=== PATIENT | female | born 1940 | race Caucasian/White ===

== ENCOUNTER 2024-10-14 14:26 | Inpatient (IN) | payer MEDICARE, OTHER ==
[~2024-10-14] VITALS: Ht 157.5 cm; Wt 37.6 kg
[2024-10-14 15:18] LABS: BASOPHILS % (AUTO) 0.7 % (0.0-2.0); EOSINOPHILS # (AUTO) 0.2 K/uL (0.0-0.7); EOSINOPHILS % (AUTO) 2.7 % (0.0-6.0); HEMATOCRIT 32 % (33-45); HEMOGLOBIN 11.1 g/dL (11.5-14.8); MEAN CORPUSCULAR HEMOGLOBIN 32 PG (26.0-33.0); MEAN CORPUSCULAR HGB CONC 34 g/dl (31.0-36.0); MEAN CORPUSCULAR VOLUME 94 fL (82-100); MONOCYTES # (AUTO) 0.5 K/uL (0.1-1.30); MONOCYTES % (AUTO) 8.8 % (2.0-12.0); NEUTROPHILS # (AUTO) 2.8 K/uL (1.8-8.9); NEUTROPHILS % (AUTO) 50.8 % (43.0-81.0); PLATELET COUNT (AUTO) 325 K/uL (150-450); RED BLOOD CELL COUNT(AUTO) 3.43 MIL/uL (4.0-5.2); RED CELL DISTRIBUTION WIDTH 13.4 % (11.5-15.0); WHITE BLOOD COUNT (AUTO) 5.5 K/uL (4.3-11.0)
[2024-10-14] MEDS: IV NS 0.9% 500 ML BAG IV ONE (15:23)
[2024-10-14 15:28] LABS: CALCIUM, SERUM 9.6 mg/dL (8.5-10.1); CREATININE 0.8 mg/dL (0.6-1.3); POTASSIUM 4.2 mmol/L (3.5-5.1)
[2024-10-14] MEDS ORDERED: AMLO5TAB4 PO (15:58)
[2024-10-14] MEDS ORDERED: VALP250C3 PO (15:58)
[2024-10-14] MEDS ORDERED: MULT-213 PO (15:58)
[2024-10-14] MEDS ORDERED: SIMV10TA98 PO (15:58)
[2024-10-14] MEDS ORDERED: FAMO-131 PO (15:58)
[2024-10-14] MEDS ORDERED: OLAN10TA3 PO (15:58)
[2024-10-14] MEDS ORDERED: MELA3TAB41 PO (15:58)
[2024-10-14] MEDS ORDERED: ACET-2030 PO (15:58)
[2024-10-14 16:00] VITALS: BP 136/85; TEMP 97.9; O2SAT 98
[2024-10-14 16:11] LABS: APPEARANCE,URINE CLEAR (CLEAR); BILIRUBIN,URINE NEGATIVE (NEGATIVE); BLOOD, URINE NEGATIVE Ery/uL (NEGATIVE); COLOR,URINE YELLOW (YELLOW); KETONES,URINE NEGATIVE (NEGATIVE); LEUKOCYTE ESTERASE ,URINE 1+ (NEGATIVE); NITRITE, URINE NEGATIVE (NEGATIVE); PROTEIN,URINE NEGATIVE (NEGATIVE); UGLUCOSE NEGATIVE (NEGATIVE); UROBILINOGEN,URINE 0.2 EU/dL (0.2)
[2024-10-14 16:18] LABS: ADD URINE CULTURE YES; BACTERIA,URINE Few /HPF (None Seen); RBC,URINE 0-2 /HPF (0-2); SQUAMOUS EPITHELIAL CELL,UR Few /HPF (None Seen)
[2024-10-14] MEDS ORDERED: Z GUARD REMEDY 4 OZ OINT TP PRN (16:30)
[2024-10-14] MEDS ORDERED: MAGNESIUM HYDROXIDE 30 ML UDC PO PRN (16:30)
[2024-10-14] MEDS ORDERED: MAG HYDROX/AL HYDROX/SIMETH 30 ML UDC PO PRN (16:30)
[2024-10-14] MEDS: IV NS 0.9% 1,000 ML IV PRN (17:02)
[2024-10-14] MEDS: MEGESTROL ACETATE SUSP 400 MG/10 ML UDC PO SCH (17:42)
[2024-10-14] MEDS: VALPROIC ACID 250 MG/5 ML UDC PO SCH (17:42)
[2024-10-14] MEDS: OLANZAPINE 10 MG TABLET PO SCH (17:43)
[2024-10-14] MEDS: CEFTRIAXONE 1 G in IV D5W 50 ML IV SCH (17:44)
[2024-10-14 20:00] VITALS: BP 118/61; TEMP 97.7; O2SAT 100
[2024-10-14] MEDS: SIMVASTATIN 10 MG TABLET PO SCH (21:07)
[2024-10-14] MEDS: ONDANSETRON HCL/PF 4 MG/2 ML VIAL IVP PRN (22:09)
[2024-10-15] MEDS: TEMAZEPAM 15 MG CAPSULE PO PRN (00:42)
[2024-10-15] MEDS: ACETAMINOPHEN 325 MG TABLET PO PRN (00:43)
[2024-10-15 06:34] LABS: BASOPHILS % (AUTO) 0.5 % (0.0-2.0); EOSINOPHILS # (AUTO) 0.2 K/uL (0.0-0.7); EOSINOPHILS % (AUTO) 2.4 % (0.0-6.0); HEMATOCRIT 31 % (33-45); HEMOGLOBIN 10.6 g/dL (11.5-14.8); LYMPHOCYTES # (AUTO) 2.2 K/uL (0.8-4.8); LYMPHOCYTES % (AUTO) 34.2 % (20.0-44.0); MEAN CORPUSCULAR HEMOGLOBIN 32 PG (26.0-33.0); MEAN CORPUSCULAR HGB CONC 35 g/dl (31.0-36.0); MEAN CORPUSCULAR VOLUME 94 fL (82-100); MONOCYTES # (AUTO) 0.5 K/uL (0.1-1.30); MONOCYTES % (AUTO) 7.8 % (2.0-12.0); NEUTROPHILS # (AUTO) 3.6 K/uL (1.8-8.9); NEUTROPHILS % (AUTO) 55.1 % (43.0-81.0); PLATELET COUNT (AUTO) 314 K/uL (150-450); RED BLOOD CELL COUNT(AUTO) 3.27 MIL/uL (4.0-5.2); RED CELL DISTRIBUTION WIDTH 13.4 % (11.5-15.0); WHITE BLOOD COUNT (AUTO) 6.5 K/uL (4.3-11.0)
[2024-10-15 06:52] LABS: CREATININE 0.7 mg/dL (0.6-1.3); PHOSPHORUS 2.8 mg/dL (2.5-4.9); POTASSIUM 3.5 mmol/L (3.5-5.1); THYROID STIMULATING HORMONE 1.68 uIU/mL (0.358-3.74)
[2024-10-15] MEDS: PANTOPRAZOLE 40 MG TABLET.DR PO SCH (07:57)
[2024-10-15 08:00] VITALS: BP 148/83; TEMP 97.6; O2SAT 97
[2024-10-15] MEDS: AMLODIPINE BESYLATE 5 MG TABLET PO SCH (09:03)
[2024-10-15] MEDS: MULTIVITAMINS,THERAGRAN 1 UDTAB TABLET PO SCH (09:03)
[2024-10-15 16:00] VITALS: BP 120/66; TEMP 98.6; O2SAT 98
[2024-10-15 16:50] VITALS: BP 120/66; TEMP 98.6; O2SAT 98
[2024-10-15 20:00] VITALS: BP 132/63; TEMP 98.4; O2SAT 98
[2024-10-16 08:00] VITALS: BP 105/55; TEMP 97.9; O2SAT 96
[2024-10-16 16:00] VITALS: BP 128/75; O2SAT 98
[2024-10-16 17:00] VITALS: BP 128/75; TEMP 98.2; O2SAT 98
[2024-10-16 20:00] VITALS: BP 104/58; TEMP 97.2; O2SAT 98
[2024-10-16 20:46] VITALS: BP 104/58; TEMP 97.2; O2SAT 98
[2024-10-17 08:00] VITALS: BP 135/73; TEMP 97.7; O2SAT 99
[2024-10-17 08:16] VITALS: BP 135/73
== END 2024-10-17 15:00 | DRG 689 ==
LOC: ER 14:45 → MED 16:22
PROVIDERS: ADMIT Nurse Practitioner Acute Care; ATTEND Nurse Practitioner Acute Care
DX: N39.0 Urinary tract infection, site not specified (principal); E43 Unspecified severe protein-calorie malnutrition; G93.41 Metabolic encephalopathy; R64 Cachexia; Z68.1 Body mass index [BMI] 19.9 or less, adult; E86.0 Dehydration; E78.5 Hyperlipidemia, unspecified; G30.9 Alzheimer's disease, unspecified; F02.80 Dementia in other diseases classified elsewhere, unspecified severity, without behavioral disturbance, psychotic disturbance, mood disturbance, and anxiety; F20.9 Schizophrenia, unspecified; G40.909 Epilepsy, unspecified, not intractable, without status epilepticus; I10 Essential (primary) hypertension; M62.50 Muscle wasting and atrophy, not elsewhere classified, unspecified site; B96.89 Other specified bacterial agents as the cause of diseases classified elsewhere; R32 Unspecified urinary incontinence
CPT/HCPCS: 36415; 80048-TC; 81001; 83735-TC; 84100-TC; 84443-TC; 85025-TC; 87081-TC; 87086-TC; 97112-TC; A4223; G0378; J0696; J2405; J7030; J7040; J7060